=== PATIENT | female | born 1985 | race Caucasian/White ===

== ENCOUNTER 2020-12-19 17:16 | Outpatient (CLI) | payer OTHER ==
[~2020-12-19 17:16] MED LIST: DAYQUIL; DM/P295L11; FISH OIL; FLAX100016; HYDR-3237 PO; LACT1CAP43 PO; MINO100T2 PO; MUCINEX; MULT-208 PO; ONDA4TAB7 PO; PHENERGAN CODEINE; POLY17PO5 PO; SUDAFED; [UNRECOGNIZED DRUG - OTHER]
== END 2020-12-19 23:59 | disposition home or self-care (01) ==
LOC: RAD 17:16
PROVIDERS: ATTEND Surgery
DX: Z02.9 Encounter for administrative examinations, unspecified (principal)